=== PATIENT | female | born 1995 | race Hispanic/Latino ===

== ENCOUNTER 2020-04-26 18:18 | Emergency (ER) | payer BC ==
[2020-04-26 20:30] LABS: Urine Specific Gravity 1.025 (1.005-1.030)
[2020-04-26 20:31] LABS: Urine Blood NEGATIVE (NEG); Urine Glucose 2+ (NEG); Urine Protein 1+ (NEG); Urine Specific Gravity 1.025 (1.005-1.030)
[2020-04-26 21:31] LABS: Urine Bacteria <20 /HPF (<20); Urine Culture Reflex Order NOT NEEDED; Urine Mucus 1+ /HPF (NONE SEEN)
[2020-04-26] MEDS ORDERED: INSULIN -REGULAR HUMAN 50 UNIT/0.5 ML ML ONE (21:41)
[2020-04-26] MEDS ORDERED: FLUCONAZOLE 100 MG TAB ONE (21:42)
[2020-04-26] MEDS ORDERED: METFORMIN HCL 500 MG TAB ONE (21:42)
[2020-04-26 22:06] VITALS: BP 136/94; TEMP 99; O2SAT 100
--- NOTE | 2020-05-01 14:53 | EDPHYS ---
Physician Documentation [facility] Name: Tracy aHnks Age: 24 yrs Sex: Female : 1995 Arrival Date: 04/26/2020 Time: 18:21 Bed 14 Private MD: ED Physician Kit Judge HPI: 04/26 21:15 This 24 yrs old Female presents to ER via Ambulatory with complaints of snw Vaginal Pain. 21:15 The patient presents with dyspareunia, scant vaginal bleeding, white discharge, snw discomfort. Onset: The symptoms/episode began/occurred gradually. Associated signs and symptoms: The patient has no apparent associated signs or symptoms. Severity of symptoms: At their worst the symptoms were moderate. The patient has not experienced similar symptoms in the past. The patient has not recently seen a physician, and does not have an established primary care provider, just moved to area. uncontrolled diabetes, acquired s/p , usually takes 1000mg Metformin BID, has not had any. Current FSBS 345mg/dl. Historical: - Allergies: 18:35 No Known Allergies; ll1 - PMHx: 18:35 Diabetes - NIDDM; ll1 - PSHx: 18:35 ; ll1 - Immunization history:: Adult Immunizations up to date, Flu vaccine is not up to date. - Social history:: Smoking status: Patient reports the use of cigarette tobacco products, smokes one-half pack cigarettes per day, Patient uses alcohol, Patient/guardian denies using street drugs. ROS: 21:14 Constitutional: Negative for fever, chills, and weight loss, Eyes: Negative for injury, snw pain, redness, and discharge, ENT: Negative for injury, pain, and discharge, Neck: Negative for injury, pain, and swelling, Cardiovascular: Negative for chest pain, palpitations, and edema, Respiratory: Negative for shortness of breath, cough, wheezing, and pleuritic chest pain, Abdomen/GI: Negative for abdominal pain, nausea, vomiting, diarrhea, and constipation, Back: Negative for injury and pain, MS/Extremity: Negative for injury and deformity, Skin: Negative for injury, rash, and discoloration, Neuro: Negative for headache, weakness, numbness, tingling, and seizure, Psych: Negative for depression, anxiety, suicide ideation, homicidal ideation, and hallucinations. 21:14 : Positive for white vaginal discharge, discomfort, dyspareunia . Exam: 21:14 Constitutional: This is a well developed, well nourished patient who is awake, alert, snw and in no acute distress. Head/Face: Normocephalic, atraumatic. Eyes: Pupils equal round and reactive to light, extra-ocular motions intact. Lids and lashes normal. Conjunctiva and sclera are non-icteric and not injected. Cornea within normal limits. Periorbital areas with no swelling, redness, or edema. ENT: Nares patent. No nasal discharge, no septal abnormalities noted. Tympanic membranes are normal and external auditory canals are clear. Oropharynx with no redness, swelling, or masses, exudates, or evidence of obstruction, uvula midline. Mucous membranes moist. Neck: Trachea midline, no thyromegaly or masses palpated, and no cervical lymphadenopathy. Supple, full range of motion without nuchal rigidity, or vertebral point tenderness. No Meningismus. Chest/axilla: Normal chest wall appearance and motion. Nontender with no deformity. No lesions are appreciated. Cardiovascular: Regular rate and rhythm with a normal S1 and S2. No gallops, murmurs, or rubs. Normal PMI, no JVD. No pulse deficits. Respiratory: Lungs have equal breath sounds bilaterally, clear to auscultation and percussion. No rales, rhonchi or wheezes noted. No increased work of breathing, no retractions or nasal flaring. Abdomen/GI: Soft, non-tender, with normal bowel sounds. No distension or tympany. No guarding or rebound. No evidence of tenderness throughout. Back: No spinal tenderness. No costovertebral tenderness. Full range of motion. Female : Normal external genitalia. Skin: Warm, dry with normal turgor. Normal color with no rashes, no lesions, and no evidence of cellulitis. MS/ Extremity: Pulses equal, no cyanosis. Neurovascular intact. Full, normal range of motion. Neuro: Awake and alert, GCS 15, oriented to person, place, time, and situation. Cranial nerves II-XII grossly intact. Motor strength 5/5 in all extremities. Sensory grossly intact. Cerebellar exam normal. Normal gait. Vital Signs: 18:30 BP 136 / 94; Pulse 110; Resp 18; Temp 99.0; Pulse Ox 100% ; Weight 83.91 kg; Height 5 ll1 ft. 10 in. (177.80 cm); Pain 7/10; 18:30 Body Mass Index 26.54 (83.91 kg, 177.80 cm) ll1 MDM: 20:44 Patient medically screened. snw 21:13 Data reviewed: vital signs, nurses notes, lab test result(s). Data interpreted: Pulse snw oximetry: on room air is 100 %. Interpretation: normal. Counseling: I had a detailed discussion with the patient and/or guardian regarding: the historical points, exam findings, and any diagnostic results supporting the discharge/admit diagnosis, lab results, the need for outpatient follow up, to return to the emergency department if symptoms worsen or persist or if there are any questions or concerns that arise at home. Special discussion: I have referred the patient to see his PCP for further evaluation of high blood pressure. Based on the history and exam findings, there is no indication for further emergent testing or inpatient evaluation. I discussed with the patient/guardian the need to see the OB Gyne specialist for further evaluation of the symptoms. I discussed with the patient/guardian the need to see the primary care provider for further evaluation of the symptoms. 04/26 20:24 Order name: Urine Microscopic Only; Complete Time: 21:36 lp1 04/26 20:25 Order name: Urine Dipstick--Ancillary (enter results); Complete Time: 20:34 ar5 04/26 20:27 Order name: Urine --Ancillary (enter results); Complete Time: 20:34 ar5 04/26 21:02 Order name: Glucose, Ancillary Testing; Complete Time: 21:04 EDMS 04/26 20:24 Order name: Urine Dipstick-Ancillary (obtain specimen); Complete Time: 20:24 lp1 04/26 20:45 Order name: Glucose Level; Complete Time: 20:52 lp1 Administered Medications: 21:41 Drug: Insulin Regular Human 5 units {Co-Signature: [email or web address] (Darvin Wren RN).} Route: vc Sub-Q; Site: right upper arm; 04/27 01:22 Follow up: Response: No adverse reaction vc 04/26 21:41 Drug: metFORMIN 500 mg Route: PO; vc 04/27 01:18 Follow up: Response: No adverse reaction 04/26 21:42 Drug: DiFLUcan 200 mg Route: PO; vc 21:50 Follow up: Response: No adverse reaction Point of Care Testing: Blood Glucose: 20:54 Blood Glucose: 345 mg/dL; Ranges: Critical Glucose Levels:Adult <50 mg/dl or >400 mg/dl <40 mg/dl or >180 mg/dl Disposition: 04/27 09:53 Co-signature as Attending Physician, Kit Judge MD I agree with the assessment and kdr plan of care. Disposition: 04/26/20 21:12 Discharged to Home. Impression: Candidiasis of vulva and vagina, Diabetes mellitus due to underlying condition with hyperglycemia, Patient's intentional underdosing of medication regimen for other reason - Moved and does not have PCP. - Condition is Stable. - Discharge Instructions: Diabetes and Sick Day Management, Vaginal Yeast Infection, Adult, Form - Daily Diabetes Record, Blood Glucose Monitoring, Adult, Rehydration, Adult. - Prescriptions for Metformin 500 mg Oral Tablet - take 1 tablet by ORAL route once daily for 7 days Then take 1 tablet with morning meals AND evening meals; 21 tablet. - Medication Reconciliation Form, Thank You Letter, Antibiotic Education, Prescription Opioid Use form. - Follow up: Emergency Department; When: As needed; Reason: If symptoms return, Worsening of condition. Follow up: Private Physician; When: 1 - 2 days; Reason: Recheck today's complaints, Continuance of care, Re-evaluation by your physician. Signatures: Dispatcher [employer] EDMS Kit Judge MD MD [facility] Anu Henning, DUST BOX TENDER-C DUST BOX TENDER-Csnw Pilar Guallpa RN RN lp1 Georgette Villagran RN RN Shady Jordan RN RN ll1 Darvin Wren RN [email or web address] Corrections: (The following items were deleted from the chart) 04/26 21:53 21:12 04/26/2020 21:12 Discharged to Home. Impression: Candidiasis of vulva and vagina; vc Diabetes mellitus due to underlying condition with hyperglycemia; Patient's intentional underdosing of medication regimen for other reason - Moved and does not have PCP. Condition is Stable. Forms are Medication Reconciliation Form, Thank You Letter, Antibiotic Education, Prescription Opioid Use. Follow up: Emergency Department; When: As needed; Reason: If symptoms return, Worsening of condition. Follow up: Private Physician; When: 1 - 2 days; Reason: Recheck today's complaints, Continuance of care, Re-evaluation by your physician. anastasia
--- NOTE | 2020-05-01 14:53 | ER ---
Nurse's Notes [facility] Name: Tracy Hanks Age: 24 yrs Sex: Female : 1995 Arrival Date: 04/26/2020 Time: 18:21 Bed 14 Private MD: Diagnosis: Candidiasis of vulva and vagina;Diabetes mellitus due to underlying condition with hyperglycemia;Patient's intentional underdosing of medication regimen for other reason-Moved and does not have PCP Presentation: 04/26 18:30 Chief complaint: Patient states: Noticed blood during intercourse Friday. Vaginal area ll1 feels irritated today. Reports white vaginal discharge, no foul odor. No fevers. UPT was negative at home. Coronavirus screen: Proceed with normal triage. Patient denies a cough. Patient denies shortness of breath or difficulty breathing. Patient denies measured and/or subjective temperature greater than 100.4F prior to today's visit. Patient denies travel on a cruise ship or to a country the [facility] currently lists as an affected area. Patient denies contact with known and/or suspected case of COVID-19. Ebola Screen: Patient denies travel to an Ebola-affected area in the 21 days before illness onset. Initial Sepsis Screen: Does the patient meet any 2 criteria? HR > 90 bpm. Does the patient have a suspected source of infection? Yes: Other: vaginal discharge. Risk Assessment: Do you want to hurt yourself or someone else? Patient reports no desire to harm self or others. Onset of symptoms was April 24, 2020. 18:30 Method Of Arrival: Ambulatory ll1 18:30 Acuity: ROCCO 4 ll1 Triage Assessment: 21:00 General: Appears in no apparent distress. uncomfortable, Behavior is calm, cooperative, vc appropriate for age. Pain: Complains of pain in vagina. Historical: - Allergies: 18:35 No Known Allergies; ll1 - PMHx: 18:35 Diabetes - NIDDM; ll1 - PSHx: 18:35 ; ll1 - Immunization history:: Adult Immunizations up to date, Flu vaccine is not up to date. - Social history:: Smoking status: Patient reports the use of cigarette tobacco products, smokes one-half pack cigarettes per day, Patient uses alcohol, Patient/guardian denies using street drugs. Screenin:00 Abuse screen: Denies threats or abuse. Nutritional screening: No deficits noted. vc Tuberculosis screening: No symptoms or risk factors identified. Fall Risk None identified. Assessment: 21:00 General: Appears in no apparent distress. Pain: Complains of pain in vaginal Pain does vc not radiate. Neuro: Level of Consciousness is awake, alert, obeys commands. Cardiovascular: Capillary refill < 3 seconds Patient's skin is warm and dry. Respiratory: Airway is patent Respiratory effort is even, unlabored, Respiratory pattern is regular, symmetrical. GI: No signs and/or symptoms were reported involving the gastrointestinal system. : Reports discharge, from vagina that is white, pain with intercourse vaginal itching. Vital Signs: 18:30 BP 136 / 94; Pulse 110; Resp 18; Temp 99.0; Pulse Ox 100% ; Weight 83.91 kg; Height 5 ll1 ft. 10 in. (177.80 cm); Pain 7/10; 18:30 Body Mass Index 26.54 (83.91 kg, 177.80 cm) ll1 ED Course: 18:21 Patient arrived in ED. mr 18:26 Anu Henning, [facility]. snw 18:26 Kit Judge MD is Attending Physician. snw 18:34 Triage completed. ll1 18:35 Arm band placed on Patient notified of wait time. ll1 20:54 Georgette Villagran, RN is Primary Nurse. vc 21:50 No provider procedures requiring assistance completed. Patient did not have IV access vc during this emergency room visit. Administered Medications: 21:41 Drug: Insulin Regular Human 5 units {Co-Signature: [email or web address] (Darvin Wren RN).} Route: vc Sub-Q; Site: right upper arm; 04/27 01:22 Follow up: Response: No adverse reaction vc 04/26 21:41 Drug: metFORMIN 500 mg Route: PO; vc 04/27 01:18 Follow up: Response: No adverse reaction vc 04/26 21:42 Drug: DiFLUcan 200 mg Route: PO; vc 21:50 Follow up: Response: No adverse reaction vc Point of Care Testing: Blood Glucose: 20:54 Blood Glucose: 345 mg/dL; Ranges: Outcome: 21:12 Discharge ordered by . snw 21:50 Discharged to home ambulatory. vc 21:50 Condition: good 21:50 Discharge instructions given to patient, Instructed on discharge instructions, follow up and referral plans. medication usage, Demonstrated understanding of instructions, follow-up care, medications, Prescriptions given X 1. 21:53 Patient left the ED. vc Signatures: Anu Henning, PATENT CHEMIST-C PATENT CHEMIST-Csnw Sonia Byrne Georgette, RN RN vc Jeana Sharma, RN Shady Mosquera RN RN ll1 Darvin Wren RN [email or web address] Corrections: (The following items were deleted from the chart) 04/27 01:16 01:14 General: Appears in no apparent distress. vc vc : 01:14 Pain: Complains of pain in vaginal Pain does not radiate. vc vc : 01:14 Neuro: Level of Consciousness is awake, alert, obeys commands, vc vc :14 Cardiovascular: Capillary refill < 3 seconds Patient's skin is warm and dry. vc vc :16 12:14 Respiratory: Airway is patent Respiratory effort is even, unlabored, Respiratory vc pattern is regular, symmetrical, vc :16 12:14 GI: No signs and/or symptoms were reported involving the gastrointestinal system. vc vc : 01:14 : Reports discharge, from vagina that is white, pain with intercourse vaginal vc itching, vc
== END 2020-04-26 21:53 | disposition home or self-care (01) ==
LOC: ER 18:18
DX: B37.3 Candidiasis of vulva and vagina (principal); E11.65 Type 2 diabetes mellitus with hyperglycemia; Z91.128 Patient's intentional underdosing of medication regimen for other reason; F17.210 Nicotine dependence, cigarettes, uncomplicated
CPT/HCPCS: 81003; 81015; 81025; 82947; 96372; 99283